=== PATIENT | male | born 1955 | race Caucasian/White ===

== ENCOUNTER 2018-11-02 10:56 | Emergency (ER) | payer OTHER ==
[2018-11-02] MEDS: Diltiazem 25 MG/5 ML SDV IVPUSH ONE (11:25)
[2018-11-02] MEDS: Heparin Sodium/D5W 25,000 UNITS/500 ML BAG IV SCH (11:41)
[2018-11-02] MEDS: Diltiazem 100 MG in Sodium Chloride 0.9% 100 ML IV SCH (11:44)
--- NOTE | 2018-11-02 13:09 | EDM.PDOC ---
ED HPI GENERAL MEDICAL PROBLEM - General Stated Complaint: syncope Time Seen by Provider: 11/02/18 10:56 Source of Information: Reports: Patient, Other (Friend ) History Limitations: Reports: No Limitations - History of Present Illness INITIAL COMMENTS - FREE TEXT/NARRATIVE: This is a 63yo M [place] who was witnessed to collapse with his right arm clenched and rigid extended to his right. His friend tried CPR despite no check for pulse. The friend states the patient started to come to in 4-5 minutes. The friend states when the patient woke up he had drooping of the right face and slurred speech. He was bought by law enforcement to the EMS waiting by the [place] and brought in. Patient arrived alert and coherent with no recollection of what happened. Onset: Sudden Duration: Minutes:, Resolved Prior to Arrival Location: Reports: Face, Upper Extremity, Right, Lower Extremity, Right Associated Symptoms: Reports: Confusion, Syncope, Weakness - Related Data Allergies Allergy/AdvReac Type Severity Reaction Status Date / Time codeine Allergy Other Verified 11/02/18 12:32 Home Meds: Home Meds Aspirin 11/02/18 [History] Lisinopril [Prinivil] 11/02/18 [History] ED ROS GENERAL - Review of Systems Review Of Systems: ROS reveals no pertinent complaints other than HPI. - Physical Exam Exam: See Below Exam Limited By: No Limitations General Appearance: Alert, WD/WN, No Apparent Distress Eye Exam: Bilateral Eye: EOMI, PERRL Ears: Normal External Exam, Normal Canal, Hearing Grossly Normal Nose: Normal Inspection, Normal Mucosa, No Blood Throat/Mouth: Normal Inspection, Normal Lips Head Exam: Atraumatic, Normocephalic Neck: Normal Inspection, Supple, Non-Tender Respiratory/Chest: No Respiratory Distress, Lungs Clear, Normal Breath Sounds, No Accessory Muscle Use Cardiovascular: Normal Peripheral Pulses, Tachycardia GI/Abdominal: Normal Bowel Sounds, Soft, Non-Tender Neuro Exam (Abbreviated): Alert, Oriented, CN II-XII Intact, Normal Cognition, Normal Gait, Normal Reflexes, No Motor/Sensory Deficits Back Exam: Normal Inspection, Full Range of Motion Extremities: Normal Inspection, Normal Range of Motion, Non-Tender, No Pedal Edema, Normal Capillary Refill Psychiatric: Normal Affect, Normal Mood Skin Exam: Warm, Dry, Intact, Normal Color Course - Orders/Labs/Meds Orders: Active Orders 24 hr Category Date Time Status Head wo Cont [CT] Stat Exams 11/02/18 11:06 Ordered Diltiazem [Cardizem] 100 mg Med 11/02/18 11:44 Active Sodium Chloride 0.9% [Normal Saline] 100 ml IV TITRATE Heparin Sodium/D5W [Heparin 25,000 Units in D5W 500 ML] Med 11/02/18 11:41 Active 25,000 units in 500 ml IV TITRATE Medication Orders Diltiazem HCl 100 mg/ Sodium (Chloride) 100 mls @ 5 mls/hr IV TITRATE SOHAN; Protocol Last Admin: 11/02/18 11:44 Dose: 5 mg/hr, 5 mls/hr Heparin Sodium/Dextrose (Heparin 25,000 Units In D5w 500 Ml) 25,000 units in 500 mls @ 24.528 mls/hr IV TITRATE SOHAN; Protocol Last Admin: 11/02/18 11:41 Dose: 12 units/kg/hr, 24.528 mls/hr Labs: Laboratory Tests 11/02/18 11/02/18 11/02/18 Range/Units 11:17 11:17 11:18 WBC 7.3 (4.0-11.0) K/uL RBC 4.70 (4.50-6.50) M/uL Hgb 15.2 (13.0-18.0) g/dL Hct 44.6 (40.0-54.0) % MCV 95 (76-96) fL MCH 32.3 H (27.0-32.0) pg MCHC 34.1 (31.0-35.0) g/dL RDW 14.2 (11.0-16.0) % Plt Count 61 L (150-400) K/uL MPV 10.6 H (6.0-10.0) fL Neut % (Auto) 81.5 H (45.0-70.0) % Lymph % (Auto) 8.8 L (20.0-40.0) % [place] % (Auto) 9.0 (3.0-10.0) % Eos % (Auto) 0.3 L (1.0-5.0) % Baso % (Auto) 0.4 (0.0-0.5) % Neut # (Auto) 5.91 (2.00-7.50) K/uL Lymph # (Auto) 0.64 L (1.50-4.00) K/uL [place] # (Auto) 0.65 (0.20-0.80) K/uL Eos # (Auto) 0.02 L (0.04-0.40) K/uL Baso # (Auto) 0.03 (0.02-0.10) K/uL PT 9.6 (9.0-11.5) sec INR 1.0 (1.0-3.5) Sodium 138 (136-145) mmol/L Potassium 3.4 L (3.5-5.1) mmol/L Chloride 97 L (98-107) mmol/L Carbon Dioxide 23.2 (21.0-32.0) mmol/L Anion Gap 21.2 H (5.0-15.0) mmol/L BUN 9 (8-26) mg/dL Creatinine 1.04 (0.70-1.30) mg/dL Est Cr Clr Drug Dosing TNP Estimated GFR (MDRD) > 60 (>60) MLS/MIN BUN/Creatinine Ratio 8.7 (6-25) Glucose 132 H (74-100) mg/dL Calcium 9.9 (8.5-10.1) mg/dL Total Bilirubin 1.2 H (0.0-1.0) mg/dL AST 110 H (15-37) U/L ALT 113 H (12-78) U/L Alkaline Phosphatase 66 (46-116) U/L Troponin I < 0.017 (0.000-0.060) ng/mL B-Natriuretic Peptide (0-125) pg/mL Total Protein 7.5 (6.4-8.2) g/dL Albumin 3.6 (3.4-5.0) g/dL Globulin 3.9 (2.2-4.2) g/dL Albumin/Globulin Ratio 0.9 (0.8-2.0) TSH, Ultra Sensitive 4.042 H (0.358-3.740) uIU/mL 11/02/18 Range/Units 11:18 WBC (4.0-11.0) K/uL RBC (4.50-6.50) M/uL Hgb (13.0-18.0) g/dL Hct (40.0-54.0) % MCV (76-96) fL MCH (27.0-32.0) pg MCHC (31.0-35.0) g/dL RDW (11.0-16.0) % Plt Count (150-400) K/uL MPV (6.0-10.0) fL Neut % (Auto) (45.0-70.0) % Lymph % (Auto) (20.0-40.0) % [place] % (Auto) (3.0-10.0) % Eos % (Auto) (1.0-5.0) % Baso % (Auto) (0.0-0.5) % Neut # (Auto) (2.00-7.50) K/uL Lymph # (Auto) (1.50-4.00) K/uL [place] # (Auto) (0.20-0.80) K/uL Eos # (Auto) (0.04-0.40) K/uL Baso # (Auto) (0.02-0.10) K/uL PT (9.0-11.5) sec INR (1.0-3.5) Sodium (136-145) mmol/L Potassium (3.5-5.1) mmol/L Chloride (98-107) mmol/L Carbon Dioxide (21.0-32.0) mmol/L Anion Gap (5.0-15.0) mmol/L BUN (8-26) mg/dL Creatinine (0.70-1.30) mg/dL Est Cr Clr Drug Dosing Estimated GFR (MDRD) (>60) MLS/MIN BUN/Creatinine Ratio (6-25) Glucose (74-100) mg/dL Calcium (8.5-10.1) mg/dL Total Bilirubin (0.0-1.0) mg/dL AST (15-37) U/L ALT (12-78) U/L Alkaline Phosphatase (46-116) U/L Troponin I (0.000-0.060) ng/mL B-Natriuretic Peptide 489 H (0-125) pg/mL Total Protein (6.4-8.2) g/dL Albumin (3.4-5.0) g/dL Globulin (2.2-4.2) g/dL Albumin/Globulin Ratio (0.8-2.0) TSH, Ultra Sensitive (0.358-3.740) uIU/mL Meds: Medications Generic Name Dose Route Start Last Admin Trade Name Freq PRN Reason Stop Dose Admin Diltiazem HCl 100 mg/ Sodium 100 mls @ 5 mls/hr 11/02/18 11:44 11/02/18 11:44 Chloride IV 5 mg/hr TITRATE SOHAN 5 mls/hr Administration Protocol 5 MG/HR Heparin Sodium/Dextrose 25,000 units in 500 mls @ 24.528 mls/hr 11/02/18 11: 41 11/02/18 11:41 Heparin 25,000 Units In D5w 500 Ml IV 12 units/kg/hr TITRATE SOHAN 24.528 mls/hr Administration Protocol 12 UNITS/KG/HR Discontinued Medications Generic Name Dose Route Start Last Admin Trade Name Freq PRN Reason Stop Dose Admin Alteplase, Recombinant 8 mg 11/02/18 11:08 Activase IVPUSH 11/02/18 11:09 .BOLUS ONE Diltiazem HCl 25 mg 11/02/18 11:25 11/02/18 11:25 Diltiazem IVPUSH 11/02/18 11:26 25 mg ONETIME ONE Administration - Re-Assessments/Exams Free Text/Narrative Re-Assessment/Exam: Patient placed on cardizem drip for A-fib w RVR and heparin drip for new onset A -fib with TIA. Departure - Departure Time of Disposition: 12:00 Disposition: DC/Tfer to Acute Hospital 02 Condition: Undetermined Clinical Impression: TIA (transient ischemic attack), New onset a-fib, Syncope and collapse - Discharge Information - Problem List & Annotations (1) New onset a-fib SNOMED Code(s): 91307387 Code(s): I48.91 - UNSPECIFIED ATRIAL FIBRILLATION Status: Acute Priority : High (2) Syncope and collapse SNOMED Code(s): 054647585 Code(s): R55 - SYNCOPE AND COLLAPSE Status: Acute Priority: High (3) TIA (transient ischemic attack) SNOMED Code(s): 150061339 Code(s): G45.9 - TRANSIENT CEREBRAL ISCHEMIC ATTACK, UNSPECIFIED Status: Acute Priority: High - Problem List Review Problem List Initiated/Reviewed/Updated: Yes - My Orders Last 24 Hours: My Active Orders 11/02/18 11:06 Head wo Cont [CT] Stat 11/02/18 11:41 Heparin Sodium/D5W [Heparin 25,000 Units in D5W 500 ML] 25,000 units in 500 ml IV TITRATE 11/02/18 11:44 Diltiazem [Cardizem] 100 mg Sodium Chloride 0.9% [Normal Saline] 100 ml IV TITRATE - Assessment/Plan Last 24 Hours: My Active Orders 11/02/18 11:06 Head wo Cont [CT] Stat 11/02/18 11:41 Heparin Sodium/D5W [Heparin 25,000 Units in D5W 500 ML] 25,000 units in 500 ml IV TITRATE 11/02/18 11:44 Diltiazem [Cardizem] 100 mg Sodium Chloride 0.9% [Normal Saline] 100 ml IV TITRATE Plan: Patient transfer to [facility] under Dr. Vizcaino. Consulted Dr. Matute and discussed plan with Dr. Vizcaino. Discussed plan of care with patient and friend. Cardizem drip and heparin drip to be continued on transfer.
--- NOTE | 2018-11-03 09:48 | CT ---
DATE OF SERVICE: 11/02/18 CLINICAL DATA: stroke symptoms UNENHANCED BRAIN CT: Multislice acquisition through the brain without IV contrast was performed. No priors. No masses or mass effect. No intracranial hemorrhage. No evidence of acute or subacute infarct. No osseous abnormalities. There is minimal mucosal thickening in the ethmoid sinuses consistent with chronic sinusitis. There is a rounded low density lesion in the sphenoid sinus consistent with a retention cyst or polyp. IMPRESSION: No acute intracranial abnormalities. [id number] [facility]
== END 2018-11-02 11:50 ==
LOC: LB.ED 10:56
DX: G45.9 Transient cerebral ischemic attack, unspecified (principal); I48.91 Unspecified atrial fibrillation; Z88.5 Allergy status to narcotic agent
CPT/HCPCS: 36415; 70450; 80053; 83880; 84443; 84484; 85025; 85610; 93005; 96374; 96375; 99285; A0425; A0429; J1644; J3490; J7030